=== PATIENT | female | born 1960 | race Caucasian/White ===

== ENCOUNTER 2016-11-19 09:15 | Emergency (ER) | payer MEDICARE, MEDICAID ==
[2016-11-19 09:32] VITALS: BP 143/79
--- NOTE | 2016-12-27 23:22 | UC ---
Mary Newberry Salem, scribed for Savanah Ayers MD on 11/19/16 at 1028 . Laceration HPI - HPI Summary HPI Summary: Patient is a 56 y/o female who presents to the with a laceration on her 3rd finger (left hand) since yesterday night around 2300. She reports that laceration is from a plastic bucket. She states she washed it with cold water and put a bandaid on the laceration after onset. She reports no other sx. Patients medication reviewed this visit. - History Of Current Complaint Chief Complaint: UCLaceration Stated Complaint: FINGER LACERATION Time Seen by Provider: 11/19/16 10:16 Hx Obtained From: Patient Laceration Location: Hand - Left. 3rd finger. Mechanism Of Injury: Blunt Trauma Onset/Duration: Gradual Onset, Lasting Days, Still Present Severity: Moderate Aggravating Factors: Nothing - Allergies/Home Medications Allergies/Adverse Reactions: Allergies Allergy/AdvReac Type Severity Reaction Status Date / Time Penicillins Allergy Unknown Verified 12/29/13 11:49 Reaction Details Home Medications: Home Medications Loratadine [Alavert] 11/19/16 [History] PMH/Surg Hx/FS Hx/Imm Hx Endocrine History Of: Reports: Diabetes Denies: Thyroid Disease, Hyperthyroidism, Hypothyroidism Cardiovascular History Of: Denies: Cardiac Disorders, Hypertension Respiratory History Of: Denies: COPD, Asthma GI/ History Of: Denies: Ulcer Neurological History Of: Denies: TIA, Seizures Psychological History Of: Denies: Anxiety, Depression Cancer History Of: Denies: Breast Cancer - Surgical History Surgical History: None - Family History Known Family History: Negative: Diabetes - Social History Alcohol Use: None Substance Use Type: None Smoking Status (MU): Never Smoked Tobacco - Immunization History Most Recent Influenza Vaccination: 2012 Review of Systems Constitutional: Negative All Other Systems Reviewed And Are Negative: Yes Physical Exam Triage Information Reviewed: Yes Appearance: Well-Nourished Vital Signs: Initial Vital Signs Temp 97.9 F 11/19/16 09:28 Pulse 95 11/19/16 09:28 Resp 16 11/19/16 09:28 BP 143/79 11/19/16 09:28 Pulse Ox 96 11/19/16 09:28 Blood pressure noted and patient informed to follow up with PCP. Vital Signs Reviewed: Yes Eye Exam: Normal ENT Exam: Normal Respiratory Exam: Normal Respiratory: Positive: Chest non-tender, Lungs clear, Normal breath sounds, No respiratory distress, No accessory muscle use Cardiovascular Exam: Normal Cardiovascular: Positive: RRR, No Murmur, Pulses Normal, Brisk Capillary Refill Abdominal Exam: Normal Abdomen Description: Positive: Nontender, No Organomegaly, Soft Bowel Sounds: Positive: Present Musculoskeletal: Positive: Strength Intact Neurological Exam: Normal - nonfocal, grossly intact Psychological Exam: Normal - conversing easily and appropriately Skin: Positive: Other - 1cm in length x 1mm in depth x 1mm width. Dorsal DIP. No active bleeding. Laceration Course/Dx - Course/Dx Course Of Treatment: left 3rd finger laceration - unable to repair 2/2 cellulitis and length of time of injury. Reviewed coa and f/u recommendation. See avs. questions answered as posed to the best of my ability. - Differential Dx - Laceration/Wound Provider Diagnoses: left 3rd finger laceration (no repair). cellulitis Discharge - Discharge Plan Condition: Stable Disposition: HOME Prescriptions: DOXYcycline CAP(*) [DOXYcycline 100MG CAP(*)] 100 mg PO BID #14 cap Mupirocin 2% OINT* [Bactroban 2 % Oint*] 1 applic TOPICAL DAILY #1 tube Patient Education Materials: Cellulitis (ED), Laceration Without Closure (ED) Forms: *Work Release Referrals: Lorin Johnson MD [Primary Care Provider] - Additional Instructions: Please follow up with your primary care provider, per routine. Wound check in the next 3 days. This can be done here or via your primary care physician. Seek medical attention for worsening problems in the meantime. Avoid astringents (ie: no rubbing alcohol, hydrogen peroxide). Avoid soaking the wound. Shower ok, starting tomorrow. Dressing change once daily, and as needed for soilage. Thin layer mupirocin. Cover with with dry gauze/ tape, or clothe bandage. Not "airtight." Doxycycline antibiotic - not with full meal, but a light snack may be helpful to avoid stomach upset. The documentation as recorded by the Mary sanders Salem accurately reflects the service I personally performed and the decisions made by me, Savanah Ayers MD.
== END 2016-11-19 10:46 | disposition home or self-care (01) ==
LOC: UCEAST 09:15
DX: S61.213A Laceration without foreign body of left middle finger without damage to nail, initial encounter (principal); L03.012 Cellulitis of left finger; W45.8XXA Other foreign body or object entering through skin, initial encounter; Y93.9 Activity, unspecified; Y92.9 Unspecified place or not applicable; Z88.0 Allergy status to penicillin; E11.9 Type 2 diabetes mellitus without complications
CPT/HCPCS: 99212; G0463